=== PATIENT | male | born 2000 | race Caucasian/White ===

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

== ENCOUNTER → 2022-04-03 18:35 | Outpatient (BNVA) | payer BC, SELFPAY | PROVIDERS: PCP Family Medicine; Visit Provider Family Medicine | DX: A60.00 Herpesviral infection of urogenital system, unspecified (principal); Z20.2 Contact with and (suspected) exposure to infections with a predominantly sexual mode of transmission; B00.9 Herpesviral infection, unspecified | CPT/HCPCS: 87491; 87591; 87661 ==

== ENCOUNTER 2023-04-07 17:24 | Emergency (ER) | payer SELFPAY ==
[2023-04-07 17:46] VITALS: BP 169/84; PULSE 93; RESP 18; TEMP 36.3; O2SAT 99
[2023-04-07 18:17] LABS: Basophils % 0.3 %; Eosinophils # 0.2 10^3/uL (0.0-0.8); Eosinophils % 1.4 %; Hematocrit 42.6 % (37-53); Lymphocytes # 3.3 10^3/uL (0.8-4.8); Lymphocytes % 28.4 %; Mean Corpuscular HGB Conc 33.8 g/dL (30-55); Mean Corpuscular Hemoglobin 28.5 pg (27-33); Mean Corpuscular Volume 84.4 fl (82-101); Mean Platelet Volume 9.1 fL (7.4-10.4); Monocytes # 0.7 10^3/uL (0.2-0.9); Neutrophils # 7.35 10^3/uL (1.8-7.7); Neutrophils % 63.5 %; Nucleated Red Blood Cells % 0 %; Platelet Count 311 10^3/cmm (157-399); Red Blood Count 5.05 10^6/uL (3.85-5.65); Red Cell Distribution Width 11.9 % (12.1-15.1); White Blood Count 11.57 10^3/uL (3.29-11.43)
[2023-04-07 18:44] LABS: Alanine Aminotransferase 18 U/L (0-41); Albumin Level 4.7 g/dL (3.5-5.2); Alkaline Phosphatase 73 U/L (40-130); Anion Gap 14.8 (5-19); Aspartate Amino Transferase 19 U/L (0-40); Blood Urea Nitrogen 14 mg/dL (6-20); Calcium 9.4 mg/dL (8.5-10.5); Carbon Dioxide 22 mmol/L (22-29); Chloride 105 mmol/L (98-107); Globulin 2.7 g/dL (1.3-4.6); Glucose 105 mg/dL (65-115); Lipase 23 U/L (13-60); Osmolality Calculated 287 mOsm/kg (285-295); Potassium 3.8 mmol/L (3.5-5.1); Sodium 138 mmol/L (136-145); Total Bilirubin 0.2 mg/dL (0.15-1.2); Total Protein 7.4 g/dL (6.6-8.7)
--- NOTE | 2023-04-07 19:29 | ED_ITS ---
HPI - Abdominal Pain 2 General: Chief Complaint: Abdominal Pain Stated Complaint: lower abd pain, blood in urine Time Seen by Provider: 04/07/23 18:15 History of Present Illness: Patient is a 22-year-old male who presents to the emergency department for evaluation of abdominal pain and rectal bleeding. Patient reports that he has been struggling with intermittent bright red blood per rectum for approximately 2 years. Patient states that today he started to develop diarrhea and noticed an increase of blood in his stool. Patient states that he will intermittently notice blood clots in the toilet. Patient denies significant rectal pain, however, he did develop mild abdominal cramping earlier this afternoon. Patient reports that the abdominal cramping is a new symptom for him so he decided present to the emergency department for further management/evaluation. Patient currently rates his abdominal pain as a 7 out of 10 in severity that is primarily located to the left lower quadrant and suprapubic area. He denies fever, chills, nausea, vomiting, chest pain, shortness of breath, dysuria, hematuria, constipation, melena, hematemesis, or any other associated symptoms. Patient admits to drinking approximately 5 shots of whiskey a night. Admits to smoking approximately half a pack of cigarettes a day. He denies any other recreational drug use. No other complaints at this time. Associated Symptoms: Reports hematochezia; Denies chills, coffee ground emesis, dysuria, fever(s), hematuria, hematemesis, nausea, syncope and vomiting Review of Systems 2 General: Reports: 10 or more systems reviewed and unremarkable except in HPI and below Const: Denies: fever(s) or chills Eyes: Denies: change in vision or blurry vision ENMT: Denies: throat pain, ear or mastoid pain, ear discharge, nasal discharge or nasal congestion Card: Denies: chest pain, palpitations, lightheadedness or syncope Resp: Denies: dyspnea, productive cough, non-productive cough, wheezing or stridor GI: Reports: abdominal pain and hematochezia; Denies: nausea, vomiting, hematemesis, coffee ground emesis or rectal pain : Denies: flank pain, dysuria or hematuria Musc: Denies: neck pain, back pain or extremity pain Skin/Breast: Denies: rash Neuro: Denies: headache(s), dizziness or vertigo Psych: Denies: anxiety or depression PFSH ED 2 PFSH: Social History Smoking and tobacco/nicotine status: current every day tobacco/nicotine user Physical Exam 2 Const: COMMON NORMALS: no acute distress, average body habitus, patient oriented x3 and alert HENMT: COMMON NORMALS: normocephalic, atraumatic, moist oral mucous membranes and oropharynx normal HEAD & SCALP: normocephalic and atraumatic Eye: COMMON NORMALS: Equal, round and reactive pupils present, EOMs intact bilaterally and conjunctivae normal CONJUNCTIVA: Yes conjunctivae normal P UPIL: Yes Equal, round and reactive pupils present Neck/C-Spine: COMMON NORMALS: full ROM Chest: COMMONS NORMALS: normal inspection of the chest Resp: COMMON NORMALS: normal respiratory effort, No retractions, No use of accessory muscles and clear to auscultation bilaterally AUSCULTATION: clear to auscultation bilaterally Cardio: COMMON NORMALS: regular rate, regular rhythm, No gallops present (Cardio), No clicks present (Cardio), No murmurs present (Cardio) and No rub (Cardio) RATE: regular rate RHYTHM: regular rhythm GI: OTHER: Mild left lower quadrant and suprapubic noted to palpation. No McBurney's point tenderness, Mackenzie sign or epigastric tenderness noted. No peritoneal signs or rebound tenderness appreciated. Normoactive bowel sounds in all 4 quadrants. : OTHER: Senior Manufacturing Technician present. Multiple external hemorrhoids noted on examination. The hemorrhoids are not thrombosed and are fleshy in color. No evidence of rectal fissure, perianal abscess, or fistula noted. Extremity: OTHER: Moving bilateral upper and lower extremities without weakness or deficit. Neuro: COMMON NORMALS: patient oriented x3 SENSORIUM/ORIENTATION: Yes alert OTHER: Sensation intact in the bilateral upper and lower extremities. Course 2 Vital Signs: Vital signs: Vital Signs Temperature 97.4 F L 04/07/23 17:46 Pulse Rate 93 04/07/23 17:46 Respiratory Rate 18 04/07/23 17:46 Blood Pressure 169/84 04/07/23 17:46 Pulse Oximetry 99 04/07/23 17:46 Oxygen Delivery Me thod Room Air 04/07/23 17:46 MDM - Abdominal Pain Medical Decision Making Patient is a 22-year-old male who presents to the emergency department for evaluation of abdominal pain and rectal bleeding. On physical examination patient is nontoxic and in no acute distress. Vital signs remained stable throughout the ED course. Patient is afebrile. Patient is neurovascularly intact. Patient remained hemodynamically stable throughout the ED course. CBC showed mild leukocytosis at 11.57. No anemia noted. CMP, lipase, and urinalysis all grossly unremarkable. Rectal examination revealed Multiple external hemorrhoids noted on examination. The hemorrhoids are not thrombosed and are fleshy in color. No evidence of rectal fissure, perianal abscess, or fistula noted. No McBurney's point tenderness noted on examination. Schmitt score is is 2. I do not believe appendicitis is likely at this time. Based off history and physical examination I believe the patient's symptoms are likely related to hemorrhoids. Patient reports that his rectal bleeding has been going on for approximately 2 years. I will give a prescription of Anusol and have the patient follow-up with general surgery. A prescription of Anusol was sent to your pharmacy to be picked up. Take medication as prescribed. Increase oral hydration. See handouts over generalize instructions. Can take a stool softener such as MiraLAX to prevent from bearing down while having a bowel movement. A referral was sent to general surgery here in [place]. Number provided discharge paperwork, call tomorrow to schedule appointment for further management/evaluation. Return to the emergency department in the next 12 to 24 hours for any rapid or worsening symptoms to include but not limited to worsening abdominal pain, migration of abdominal pain to right lower quadrant, fever, vomiting, lightheadedness, dizziness, worsening bleeding, or as needed. Patient stated understanding of all discharge instructions was agreeable to plan of care. I discussed patient's history, exam, and all findings with Dr. Heredia in the emergency department who agreed my assessment and plan. He did not feel the patient required admission, imaging, or further evaluation at this time. Differential diagnosis includes but is not limited to external hemorrhoids, internal hemorrhoids, perianal abscess, rectal fistula, rectal fissure, appendicitis, gastroenteritis Lab Data 04/07/23 18:06 04/07/23 18:06 Labs/Radiology: Laboratory Results WBC 11.57 10^3/uL (3.29-11.43) H 04/07/23 18:06 RBC 5.05 10^6/uL (3.85-5.65) 04/07/23 18:06 Hgb 14.40 g/dL (11.27-16.99) 04/07/23 18:06 Hct 42.6 % (37-53) 04/07/23 18:06 MCV 84.4 fl (82-101) 04/07/23 18:06 MCH 28.5 pg (27-33) 04/07/23 18:06 MCHC 33.8 g/dL (30-55) 04/07/23 18:06 RDW 11.9 % (12.1-15.1) L 04/07/23 18:06 Plt Count 311 10^3/cmm (157-399) 04/07/23 18:06 MPV 9.1 fL (7.4-10.4) 04/07/23 18:06 Neut % (Auto) 63.5 % 04/07/23 18:06 Lymph % (Auto) 28.4 % 04/07/23 18:06 Turner % (Auto) 6.0 % 04/07/23 18:06 Eos % (Auto) 1.4 % 04/07/23 18:06 Baso % (Auto) 0.3 % 04/07/23 18:06 Neut # (Auto) 7.35 10^3/uL (1.8-7.7) 04/07/23 18:06 Lymph # (Auto) 3.3 10^3/uL (0.8-4.8) 04/07/23 18:06 Turner # (Auto) 0.7 10^3/uL (0.2-0.9) 04/07/23 18:06 Eos # (Auto) 0.2 10^3/uL (0.0-0.8) 04/07/23 18:06 Baso # (Auto) 0.0 10^3/uL (0.0-0.1) 04/07/23 18:06 Nucleated RBC % (auto) 0 % 04/07/23 18:06 Nucleated RBCs # 0.0 /100WBC 04/07/23 18:06 Sodium 138 mmol/L (136-145) 04/07/23 18:06 Potassium 3.8 mmol/L (3.5-5.1) 04/07/23 18:06 Chloride 105 mmol/L (98-107) 04/07/23 18:06 Carbon Dioxide 22 mmol/L (22-29) 04/07/23 18:06 Anion Gap 14.8 (5-19) 04/07/23 18:06 BUN 14 mg/dL (6-20) 04/07/23 18:06 Creatinine 0.7 mg/dL (0.7-1.2) 04/07/23 18:06 GFR Calculation 141.0 mL/min (90-130) H 04/07/23 18:06 Glucose 105 mg/dL (65-115) 04/07/23 18:06 Calculated Osmolality 287 mOsm/kg (285-295) 04/07/23 18:06 Calcium 9.4 mg/dL (8.5-10.5) 04/07/23 18:06 Total Bilirubin 0.2 mg/dL (0.15-1.2) 04/07/23 18:06 AST 19 U/L (0-40) 04/07/23 18:06 ALT 18 U/L (0-41) 04/07/23 18:06 Alkaline Phosphatase 73 U/L (40-130) 04/07/23 18:06 Total Protein 7.4 g/dL (6.6-8.7) 04/07/23 18:06 Albumin 4.7 g/dL (3.5-5.2) 04/07/23 18:06 Globulin 2.7 g/dL (1.3-4.6) 04/07/23 18:06 Lipase 23 U/L (13-60) 04/07/23 18:06 Urine Color Yellow (Yellow) 04/07/23 20:18 Urine Appearance Clear (CLEAR) 04/07/23 20:18 Urine pH 6 (5-7) 04/07/23 20:18 Ur Specific [place] 1.020 (1.005-1.030) 04/07/23 20:18 Urine Protein Neg (Negative) 04/07/23 20:18 Urine Glucose (UA) Norm (Normal) 04/07/23 20:18 Urine Ketones Negative (Negative) 04/07/23 20:18 Urine Blood Neg (Negative) 04/07/23 20:18 Urine Nitrate Negative (Negative) 04/07/23 20:18 Urine Bilirubin Neg (Negative) 04/07/23 20:18 Urine Urobilinogen Norm mg/dL (Negative) 04/07/23 20:18 Ur Leukocyte Esterase Negative (Negative) 04/07/23 20:18 No radiology studies performed this visit Discharge Plan Discharge Patient Disposition: Home Clinical Impression: Hemorrhoids Condition: Stable Prescriptions: New Anusol-HC 25 mg suppository 25 mg IA BID 14 Days Qty: 28 0RF No Action valacyclovir 1 gram tablet 1,000 mg PO BID Qty: 20 0RF doxycycline monohydrate 100 mg tablet 100 mg PO BID Qty: 14 0RF Discharge Orders: Discharge ED (Routine); Ordered 04/07/23 Ordered By: Stephen Nielson Referrals: Omar Lord DO [Physician] - Patient Instructions: Hemorrhoids (ED) Activity Restrictions/Additional Instructions: A prescription of Anusol was sent to your pharmacy to be picked up. Take medication as prescribed. Increase oral hydration. See handouts over generalize instructions. Can take a stool softener such as MiraLAX to prevent from bearing down while having a bowel movement. A referral was sent to general surgery here in [place]. Number provided discharge paperwork, call tomorrow to schedule appointment for further management/evaluation. Return to the emergency department in the next 12 to 24 hours for any rapid or worsening symptoms to include but not limited to worsening abdominal pain, migration of abdominal pain to right lower quadrant, fever, vomiting, lightheadedness, dizziness, worsening bleeding, or as needed. Coding Level of Care Code ED Light Out Examiner for Rufino Farrar
[2023-04-07 20:27] LABS: Add Urine Microscopic? NO; Charge for UA Resulting for Rev
[2023-04-07 20:36] LABS: Bilirubin Urine Neg (Negative); Blood Urine Neg (Negative); Glucose Urine UA Norm (Normal); Ketones Urine Negative (Negative); Leukocyte Esterase Urine Negative (Negative); Nitrate Urine Negative (Negative); Protein Urine Neg (Negative); Urine Appearance Clear (CLEAR); Urine Color Yellow (Yellow); Urobilinogen Urine Norm (Negative); pH Urine 6 (5-7)
[2023-04-07 22:22] VITALS: PULSE 90; RESP 16; O2SAT 97
--- NOTE | 2023-04-08 09:07 | DCPLANNER ---
Message sent to gen surg for a follow up appointment for retal bleeding and hemorrhoids.
== END 2023-04-07 21:35 | disposition home or self-care (01) ==
PROVIDERS: Emergency Medicine; Emergency Provider Physician Assistant
DX: K64.9 Unspecified hemorrhoids (principal); Z72.0 Tobacco use
CPT/HCPCS: 36415; 80053; 81003; 83690; 85025; 99283

== ENCOUNTER 2024-11-18 13:47 | Emergency (ER) | payer SELFPAY ==
[2024-11-18 13:55] VITALS: TEMP 36.8; BMI 31.5
--- NOTE | 2024-11-18 14:16 | CT_ITS ---
WS: [id number] CT CERVICAL SPINE HISTORY: trauma TECHNIQUE: Contiguous 2.0 mm axial imaging performed through the entire cervical spine. Sagittal and coronal reformats also performed. All CT scans at [facility] use at least one of these dose optimization techniques: automated exposure control; mA and/or kV adjustment per patient size (includes targeted exams where dose is matched to clinical indication); or iterative reconstruction. DLP: 1534.14 mGy.cm COMPARISON: None available. Normal cervical alignment. Craniocervical junction, atlantodental interval and C1-C2 alignment is normal. C2-C3: Normal. C3-C4: Normal. C4-C5: Normal. C5-C6: Normal. C6-C7: Normal. C7-T1: Normal. Soft tissues are normal. Lung apices are clear. CT/CT cervical spin wo con* [id number] IMPRESSION: Normal cervical spine.
--- NOTE | 2024-11-18 14:16 | CT_ITS ---
WS: [id number] CT HEAD NONCONTRAST HISTORY: trauma TECHNIQUE: Contiguous axial imaging performed through the brain. Bone and soft tissue windows. Sagittal and coronal reformats reviewed. All CT scans at [facility] use at least one of these dose optimization techniques: automated exposure control; mA and/or kV adjustment per patient size (includes targeted exams where dose is matched to clinical indication); or iterative reconstruction. DLP: 1534.14 mGy.cm COMPARISON: 06/29/2006 No acute intracranial hemorrhage, midline shift or mass effect. No atrophy or prior infarcts or herniation. No prior infarct. No mass effect or shift of midline structures. Ventricles: Normal size with no hydrocephalus. Paranasal sinuses: Mild mucoperiosteal thickening throughout the RIGHT maxillary sinus. No air-fluid levels. Mastoid air cells: Well pneumatized. Calvarium and scalp: Skull is intact with no soft tissue edema or swelling. CT/CT head wo con* [id number] IMPRESSION: Negative head CT.
--- NOTE | 2024-11-18 14:42 | ED_ITS ---
HPI - Head Injury 2 General: Chief complaint: Head Injury Stated complaint: hit in head with farm equipment Time Seen by Provider: 11/18/24 14:06 History of Present Illness: Jeff Prabhakar is a 24-year-old male that presents to the emergency department with complaints head injury and neck pain. Patient reports that a day 3000 pound metal high lift driver fell onto his head fracturing his welding helmet. He has abrasions to the crown of his head. He reports a positive loss of consciousness. He reports neck pain He denies anticoagulation/antiplatelet therapy Related Data Home Medications ?Medication ?Instructions ?Recorded ?Confirmed acetaminophen 325 mg tablet 650 mg PO QID PRN Fever Or Pain 11/18/24 11/18/24 (Tylenol) ibuprofen 200 mg tablet (Advil) 800 mg PO Q6H PRN Feve r Or Pain 11/18/24 11/18/24 Previous Rx's ?Medication ?Instructions ?Recorded ondansetron 4 mg disintegrating 4 mg PO Q8H PRN nausea and 11/18/24 tablet vomiting 5 days #20 tabs Allergies Allergy/AdvReac Type Severity Reaction Status Date / Time Penicillins Allergy ALGY-Hives Verified 04/03/22 17:52 Review of Systems 2 General: Reports: 10 or more systems reviewed and unremarkable except in HPI and below Narrative: He reports headache, not feeling well, neck pain PFSH ED 2 PFSH: Social History Smoking and tobacco/nicotine status: current every day tobacco/nicotine user Physical Exam 2 Const: COMMON NORMALS: no acute distress, patient oriented x3 and alert G ENERAL APPEARANCE: cooperative ORIENTATION/CONSCIOUSNESS: Yes awake, Yes oriented to person, Yes oriented to place and Yes oriented to time HENMT: HEAD & SCALP: contusion and scalp tenderness HEAD IMAGES: 1. Abrasions, contusions Neck/C-Spine: GENERAL: Yes normal visual inspection Lymph: LYMPHATIC: no lymphadenopathy noted Chest: COMMONS NORMALS: normal inspection of the chest Breast/axilla inspection: Yes no chest deformity, asymmetry, normal contours, no nodules, masses, tenderness Resp: COMMON NORMALS: normal respiratory effort, No retractions, No use of accessory muscles and clear to auscultation bilaterally EFFORT & INSPECTION: Yes able to speak in complete sentences and Yes symmetric chest movement A USCULTATION: clear to auscultation bilaterally Cardio: COMMON NORMALS: regular rate, regular rhythm and Peripheral pulses 2+ throughout RATE: regular rate RHYTHM: regular rhythm PERIPHERAL PULSES: Peripheral pulses 2+ throughout GI: COMMON NORMALS: Normal to inspection, nondistended, normoactive bowel sounds present, Soft to palpation, non-tender and No hepatosplenomegaly present INSPECTION: Yes normal to inspection AUSCULTATION: Yes normoactive bowel sounds PALPATION: Yes Soft to palpation and Yes No hepatosplenomegaly present RECTAL EXAM: Yes deferred Extremity: COMMON NORMALS: normal to inspection GENERAL: Yes normal exam except as noted Neuro: COMMON NORMALS: patient oriented x3 SENSORIUM/ORIENTATION: Yes alert, Yes oriented to person, Yes oriented to place and Yes oriented to time CRANIAL NERVES: Yes CN normal except as noted Psych: COMMON NORMALS: mental status grossly normal, Normal thought process present, cooperative, activity/motor behavior normal, denies homicidal ideation and denies suicidal ideation THOUGHT PROCESS: Normal thought process present Skin: COMMON NORMALS: no rashes or lesions noted, no wounds and turgor normal GENERAL SKIN EXAM: no rashes or lesions noted and turgor normal Course 2 Vital Signs: Vital signs: Vital Signs Temperature 98.3 F 11/18/24 13:55 Pulse Rate 87 11/18/24 14:46 Respiratory Rate 16 11/18/24 14:46 Blood Pressure 165/93 11/18/24 14:46 Pulse Oximetry 96 11/18/24 14:46 Oxygen Delivery Me thod Room Air 11/18/24 14:46 MDM - Head Injury Medcial Decision Making Patient is a 24 yo male that presents to ER with concerns of head injury after a 3000 pound high lift driver fell landing on the crown of his head. He reports +LOC. He underwent a CT head and CT cervical spine. CT imaging of head and cervical spine was unremarkable. Patient has had bouts of nausea. He has remained conscious throughout his ER visit. He underwent a oral fluid challenge and we ambulated him. He did well. We are going to discharge him with a work excuse. While the CT head was negative, he undoubtably sustained a concussion. His symptoms could wax and wane for a week or so. I reviewed extensively what to return for. Significant other verbalizes understanding Lab Data Radiology Impressions Cervical Spine CT 11/18/24 14:16 IMPRESSION: Normal cervical spine. Head CT 11/18/24 14:16 IMPRESSION: Negative head CT. All radiology interpretation(s) finalized by discharge Discharge Plan Discharge Patient Disposition: Home Clinical Impression: Head injury due to trauma, Head injury, closed, with LOC of unknown duration Condition: Stable Prescriptions: New ondansetron 4 mg tablet,disintegrating 4 mg PO Q8H PRN (Reason: nausea and vomiting) 5 Days Qty: 20 0RF No Action acetaminophen [Tylenol] 325 mg Tablet 650 mg PO QID PRN (Reason: Fever Or Pain) ibuprofen [Advil] 200 mg Tablet 800 mg PO Q6H PRN (Reason: Fever Or Pain) Discharge Orders: Discharge ED (Routine); Ordered 11/18/24 Ordered By: Lucas Bergman Discharge Diet: Advance as tolerated Discharge Activity: Resume usual activity Patient Instructions: Head Injury (ED), Post Concussion Syndrome (ED), Opioid Safety, Pain Management, Patient Portal & Navjot Instructions Activity Restrictions/Additional Instructions: Please return to the emergency department for any new, concerning, worsening symptoms Print Language: Malagasy Coding Level of Care Code ED Hospital Chief Financial Officer for Rufino Farrar
[2024-11-18] MEDS: ondansetron 2 mg/ML SDV 2 mL 4 MG IVP (14:44)
[2024-11-18 14:46] VITALS: BP 165/93; PULSE 87; RESP 16; O2SAT 96
--- NOTE | 2024-11-18 14:58 | PC.NURSE ---
this RM assumed care of PT @1600
[2024-11-18 16:59] VITALS: BP 151/109; PULSE 84; O2SAT 99
== END 2024-11-18 17:02 | disposition home or self-care (01) ==
PROVIDERS: Emergency Provider Nurse Practitioner
DX: S09.8XXA Other specified injuries of head, initial encounter (principal); Z72.0 Tobacco use; W20.8XXA Other cause of strike by thrown, projected or falling object, initial encounter
CPT/HCPCS: 70450; 72125; 96374; 99285; J2405

== ENCOUNTER 2025-03-21 20:59 | Emergency (ER) | payer SELFPAY ==
[2025-03-21 21:05] VITALS: BP 162/111; PULSE 114; RESP 22; TEMP 37; O2SAT 100; BMI 33.0
[2025-03-21 21:19] VITALS: BP 160/103; PULSE 102; O2SAT 97
[2025-03-21 21:27] LABS: Glucose Urine UA Negative (Normal); Nitrate Urine Negative (Negative); Specific Gravity, Urine 1.005 (1.005-1.030)
[2025-03-21 21:30] VITALS: BP 142/93; PULSE 94; O2SAT 98
[2025-03-21 21:32] LABS: Add Urine Microscopic? YES
--- NOTE | 2025-03-21 21:43 | CTR_ITS ---
PROCEDURE INFORMATION: Exam: CT Abdomen And Pelvis With Contrast Exam date and time: 03/21/2025 10:20 PM Age: 24 years old Clinical indication: Abdominal pain; Additional info: Abdominal pain, hematemesis, concern for joseph-howell tear vs. Esophageal varices TECHNIQUE: Imaging protocol: Computed tomography of the abdomen and pelvis with contrast. Radiation optimization: All CT scans at this facility use at least one of these dose optimization techniques: automated exposure control; mA and/or kV adjustment per patient size (includes targeted exams where dose is matched to clinical indication); or iterative reconstruction. Contrast material: [id number]; Contrast volume: 100 ml; Contrast route: INTRAVENOUS (IV); COMPARISON: CT abdomen pelvis w con* [id number] 01/26/2019 6:27 PM RADIATION DOSE METRICS: Total DLP (mGy-cm): 1207.93 FINDINGS: Liver: Hepatic steatosis. Gallbladder and biliary ducts: Normal. No calcified stones. No ductal dilation. Pancreas: Normal. No ductal dilation. Spleen: Normal. No splenomegaly. Adrenal glands: Normal. No mass. Kidneys and ureters: Normal. No hydronephrosis. Stomach and bowel: Thickening of the sigmoid colon, likely from underdistention. Appendix: No evidence of appendicitis. Intraperitoneal space: Unremarkable. No free air. No significant fluid collection. Vasculature: Unremarkable. No abdominal aortic aneurysm. Lymph nodes: Unremarkable. No enlarged lymph nodes. Urinary bladder: Unremarkable as visualized. Reproductive: Unremarkable as visualized. Bones/joints: Unremarkable. No acute fracture. Soft tissues: Unremarkable. CT/CT abdomen pelvis w con* [id number] IMPRESSION: No acute findings. Normal-appearing distal esophagus.
[2025-03-21 22:00] VITALS: BP 133/93; PULSE 85; O2SAT 96
[2025-03-21] MEDS: pantoprazole 40 mg SDV 80 MG IVP (22:13)
[2025-03-21] MEDS: iohexol 350 mg/mL 500 mL Btl (per mL) IV (22:24)
--- NOTE | 2025-03-21 22:27 | ED_ITS ---
HPI - Abdominal Pain 2 General: Chief Complaint: Abdominal Pain Stated Complaint: Blood in Stool Time Seen by Provider: 03/21/25 21:13 History of Present Illness: Patient is a 24-year-old gentleman without previous medical history that reports to emergency room with bloody emesis. Content: Patient admits to occasional epigastric pain, that was worse today, he had nausea, vomiting, a couple times, then noted he had a large amount of blood per emesis. He continues to have epigastric discomfort. He does drink alcohol, 6?12 of the [place] 100 proof vodka daily of the shooters. He is fairly consistent with this as well. Patient also admits that he has bloody stools, sometimes dark, and sometimes bright red blood. He does admit to internal hemorrhoids. He has not seen a doctor in several years, and has had the stool change for 3-4 years. Associated Symptoms: Reports hematemesis, melena, nausea and vomiting; Denies change in stool character, chills, diarrhea and fever(s) Related Data Home Medications ?Medication ?Instructions ?Recorded ?Confirmed acetaminophen 325 mg tablet 650 mg PO QID PRN Fever Or Pain 11/18/24 11/18/24 (Tylenol) ibuprofen 200 mg tablet (Advil) 800 mg PO Q6H PRN Feve r Or Pain 11/18/24 11/18/24 Previous Rx's ?Medication ?Instructions ?Recorded ondansetron 4 mg disintegrating 4 mg PO Q8H PRN nausea and 03/21/25 tablet vomiting 4 days #14 tabs pantoprazole 40 mg tablet,delayed 40 mg PO DAILY #30 t abs 03/21/25 release Allergies Allergy/AdvReac Type Severity Reaction Status Date / Time Penicillins Allergy ALGY-Hives Verified 04/03/22 17:52 Review of Systems 2 General: Reports: 10 or more systems reviewed and unremarkable except in HPI and below Const: Denies: fever(s) or chills ENMT: Denies: throat pain or dry mouth Card: Denies: chest pain or palpitations Resp: Denies: dyspnea or productive cough GI: Reports: abdominal pain, nausea, vomiting, hematemesis and melena; Denies: diarrhea or change in stool character : Denies: flank pain or difficulty urinating Musc: Denies: neck pain or back pain Neuro: Denies: headache(s) or numbness in extremities Psych: Denies: anxiety or depression PFSH ED 2 PFSH: Social History Smoking and tobacco/nicotine status: current every day tobacco/nicotine user Physical Exam 2 Const: COMMON NORMALS: no acute distress, average body habitus, patient oriented x3, no limitations, healthy appearing, alert and well nourished HENMT: COMMON NORMALS: normocephalic, atraumatic and hearing grossly normal bilaterally HEAD & SCALP: normocephalic and atraumatic FACE & SINUS: n ormal facial exam Eye: COMMON NORMALS: Equal, round and reactive pupils present, EOMs intact bilaterally, conjunctivae normal (No scleral icterus or scleral paleness) and negative for no scleral icterus CONJUNCTIVA: Yes conjunctivae normal (No scleral icterus or scleral paleness) PUPIL: Yes Equal, round and reactive pupils present Neck/C-Spine: COMMON NORMALS: full ROM, no lymphadenopathy, supple and no meningeal signs Lymph: LYMPHATIC: no lymphadenopathy noted Chest: COMMONS NORMALS: normal inspection of the chest and normal palpation of entire chest wall Resp: COMMON NORMALS: normal respiratory effort, No retractions and clear to auscultation bilaterally AUSCULTATION: clear to auscultation bilaterally Cardio: COMMON NORMALS: regular rate and regular rhythm RATE: regular rate RHYTHM: regular rhythm GI: COMMON NORMALS: Normal to inspection, nondistended, normoactive bowel sounds present, Soft to palpation, non-tender and No hepatosplenomegaly present PALPATION: Yes Soft to palpation, Yes Tenderness to palpation present (GI) (epigastrum) Details: LLQ and Yes No hepatosplenomegaly present : COMMON NORMALS: Yes no CVA tenderness BLADDER/KIDNEY EXAM: Yes no CVA tenderness Back/Pelvis: COMMON NORMALS: no CVA tenderness Extremity: COMMON NORMALS: normal to inspection, full ROM and capillary refill normal Neuro: COMMON NORMALS: patient oriented x3, CN's II-XII intact bilaterally and moves all extremities SENSORIUM/ORIENTATION: Yes alert MENINGEAL SIGNS: Y es no meningeal signs Psych: COMMON NORMALS: mental status grossly normal, Normal thought process present, cooperative, normal affect and speech normal SPEECH: Yes normal speech THOUGHT PROCESS: Normal thought process present Course 2 Vital Signs: Vital signs: Vital Signs Temperature 98.6 F 03/21/25 21:05 Pulse Rate 89 03/21/25 23:41 Respiratory Rate 16 03/21/25 23:41 Blood Pressure 132/87 03/21/25 23:41 Pulse Oximetry 97 03/21/25 23:41 Oxygen Delivery Me thod Room Air 03/21/25 22:30 MDM - Abdominal Pain Medical Decision Making Patient is a pleasant 24-year-old gentleman that had acute issues of hematemesis, and ongoing issues of dark and bright red blood per rectum. His acute issue was mainly addressed. Concern of esophageal varices differential was discussed with patient. His history was significant for Shreya-Woods tear. He does drink shooters of [place] 100 proof, 6?12 nightly. He is quite appropriate in his disclosures. I have discussed with him Shreya-Woods tear, given him IV fluids, and encouraged him to stop his alcohol intake, and discuss his mild elevation of LFTs. His CT of his abdomen pelvis did not show esophageal varices, which patient is quite thankful for, and is more consistent with his clinical diagnosis of Shreya-Woods tear. I have set him up for outpatient consultation with Dr. Carnes, for possible colonoscopy, and EGD. He has been placed on pantoprazole, asked to cease alcohol intake, and clear liquid diet until his nausea symptoms or emesis ceased. Patient states understanding and is grateful for his care today. As far as his chronic issues of dark blood, and bright lead blood, patient does have hemorrhoids. I suspect the bright red blood is associated with hemorrhoidal, and I suspect the dark of blood is associated with gastritis, alcoholic gastritis. Discussed this with patient. Discussed additional concerns of colitis, ulcerative, and Crohn's, no history of inflammatory bowel disease. He will follow-up with Dr. Carnes for further decision making. Blood counts were stable today. Noted not to intake any NSAIDs/aspirin and layman's terms to patient verbally, and written instructions. Medical Records I reviewed the patient's medical records. Lab Data I reviewed the patient's lab results. 03/21/25 23:00 03/21/25 23:00 Labs/Radiology: Radiology Impressions Abdomen/Pelvis CT 03/21/25 21:43 IMPRESSION: No acute findings. Normal-appearing distal esophagus. Laboratory Results WBC 6.55 10^3/uL (3.29-11.43) 03/21/25 23:00 RBC 4.34 10^6/uL (3.85-5.65) 03/21/25 23:00 Hgb 12.60 g/dL (11.27-16.99) 03/21/25 23:00 Hct 38.0 % (37-53) 03/21/25 23:00 MCV 87.6 fl (82-101) 03/21/25 23:00 MCH 29.0 pg (27-33) 03/21/25 23:00 MCHC 33.2 g/dL (30-55) 03/21/25 23:00 RDW 13.4 % (12.1-15.1) 03/21/25 23:00 Plt Count 264 10^3/cmm (157-399) 03/21/25 23:00 MPV 8.8 fL (7.4-10.4) 03/21/25 23:00 Neut % (Auto) 46.3 % 03/21/25 23:00 Lymph % (Auto) 43.5 % 03/21/25 23:00 [place] % (Auto) 8.2 % 03/21/25 23:00 Eos % (Auto) 0.9 % 03/21/25 23:00 Baso % (Auto) 0.8 % 03/21/25 23:00 Neut # (Auto) 3.03 10^3/uL (1.8-7.7) 03/21/25 23:00 Lymph # (Auto) 2.9 10^3/uL (0.8-4.8) 03/21/25 23:00 [place]k # (Auto) 0.5 10^3/uL (0.2-0.9) 03/21/25 23:00 Eos # (Auto) 0.1 10^3/uL (0.0-0.8) 03/21/25 23:00 Baso # (Auto) 0.1 10^3/uL (0.0-0.1) 03/21/25 23:00 Nucleated RBC % (auto) 0 % 03/21/25 23:00 Nucleated RBCs # 0.0 /100WBC 03/21/25 23:00 Sodium 140 mmol/L (136-145) 03/21/25 23:00 Potassium 3.8 mmol/L (3.5-5.1) 03/21/25 23:00 Chloride 103 mmol/L (98-107) 03/21/25 23:00 Carbon Dioxide 24 mmol/L (22-29) 03/21/25 23:00 Anion Gap 16.8 (5-19) 03/21/25 23:00 BUN 9 mg/dL (6-20) 03/21/25 23:00 Creatinine 0.7 mg/dL (0.7-1.2) 03/21/25 23:00 GFR Calculation 138.6 mL/min (90-130) H 03/21/25 23:00 Glucose 108 mg/dL (65-115) 03/21/25 23:00 Calculated Osmolality 289 mOsm/kg (285-295) 03/21/25 23:00 Calcium 8.6 mg/dL (8.5-10.5) 03/21/25 23:00 Total Bilirubin 0.3 mg/dL (0.15-1.2) 03/21/25 23:00 AST 79 U/L (0-40) H 03/21/25 23:00 ALT 65 U/L (0-41) H 03/21/25 23:00 Alkaline Phosphatase 68 U/L (40-130) 03/21/25 23:00 Total Protein 7.0 g/dL (6.6-8.7) 03/21/25 23:00 Albumin 4.4 g/dL (3.5-5.2) 03/21/25 23:00 Globulin 2.6 g/dL (1.3-4.6) 03/21/25 23:00 Urine Color Yellow (Yellow) 03/21/25 21:10 Urine Appearance Clear (CLEAR) 03/21/25 21:10 Urine pH 6.5 (5-7) 03/21/25 21:10 Ur Specific [place] 1.005 (1.005-1.030) 03/21/25 21:10 Urine Protein Negative (Negative) 03/21/25 21:10 Urine Glucose (UA) Negative (Normal) 03/21/25 21:10 Urine Ketones Negative (Negative) 03/21/25 21:10 Urine Blood Negative (Negative) 03/21/25 21:10 Urine Nitrate Negative (Negative) 03/21/25 21:10 Urine Bilirubin Negative (Negative) 03/21/25 21:10 Urine Urobilinogen 0.2 mg/dL (Negative) 03/21/25 21:10 Ur Leukocyte Esterase Negative (Negative) 03/21/25 21:10 Urine RBC 0-2 /hpf (0-2) 03/21/25 21:10 Urine WBC 0-5 /hpf (0-5) 03/21/25 21:10 Ur Squamous Epith Cells 0-5 /hpf (0-5) 03/21/25 21:10 Amorphous Sediment Not Reportable 03/21/25 21:10 Urine Bacteria None seen /hpf (NONE) 03/21/25 21:10 Hyaline Casts 0.40 /lpf 03/21/25 21:10 All radiology interpretation(s) finalized by discharge ED provider radiology interpretation(s): No acute findings Discharge Plan Discharge Patient Disposition: Home Clinical Impression: Hsreya-Woods tear Condition: Stable Prescriptions: New pantoprazole 40 mg tablet,delayed release (DR/EC) 40 mg PO DAILY Qty: 30 0RF ondansetron 4 mg tablet,disintegrating 4 mg PO Q8H PRN (Reason: nausea and vomiting) 4 Days Qty: 14 0RF No Action acetaminophen [Tylenol] 325 mg Tablet 650 mg PO QID PRN (Reason: Fever Or Pain) ibuprofen [Advil] 200 mg Tablet 800 mg PO Q6H PRN (Reason: Fever Or Pain) Discharge Orders: Discharge ED (Routine); Ordered 03/21/25 Ordered By: Stella De León Referrals: Jin Carnes MD [Physician, General Surgery] - 7-10 days Clinical Impression: Shreya-Woods tear Discharge Diet: Clear Liquid Discharge Activity: Resume usual activity Patient Instructions: Abdominal Pain (ED), Shreya-Woods Syndrome (ED), Patient Portal & Navjot Instructions Activity Restrictions/Additional Instructions: - Do not take: Ibuprofen, naproxen, aspirin, BC powder, Pepto-Bismol, or any NSAIDs containing product or blood thinner. - At the pharmacy: Pantoprazole, this is for your stomach and the inflammation, and Zofran/ondansetron, this is for nausea. Use as directed. - Return to ED if you have ongoing vomiting, lightheadedness, fever greater than 100.4 is Fahrenheit - Clear liquid diet only until this resolves - No alcohol - Follow-up with surgeon for outpatient colonoscopy and scope. I have made a referral to Dr. Carnes. This will help you expedite this issue. Thank you for choosing [facility] for your healthcare needs today. You have been screened and evaluated and felt safe for discharge. Health conditions do change or evolve sometimes and as such it is important that you follow up with your Primary Doctor to be re checked, 3-5 days is a general good time frame for follow up. You are always welcome to return to the ED for re assessment if your symptoms are worsening or you have new concerns Stand Alone Forms: Work/School Release Print Language: Kiswahili Coding Level of Care Code ED Route [employer] for [employer]ufino Farrar
[2025-03-21 22:30] VITALS: BP 143/91; PULSE 85; O2SAT 95
[2025-03-21 23:23] LABS: Hematocrit 38.0 % (37-53); Hemoglobin 12.60 g/dL (11.27-16.99); Mean Corpuscular HGB Conc 33.2 g/dL (30-55); Mean Corpuscular Hemoglobin 29.0 pg (27-33); Mean Corpuscular Volume 87.6 fl (82-101); Nucleated Red Blood Cells % 0 %; Platelet Count 264 10^3/cmm (157-399); Red Blood Count 4.34 10^6/uL (3.85-5.65); White Blood Count 6.55 10^3/uL (3.29-11.43)
[2025-03-21 23:33] LABS: Alanine Aminotransferase 65 U/L (0-41); Albumin Level 4.4 g/dL (3.5-5.2); Alkaline Phosphatase 68 U/L (40-130); Anion Gap 16.8 (5-19); Aspartate Amino Transferase 79 U/L (0-40); Blood Urea Nitrogen 9 mg/dL (6-20); Calcium 8.6 mg/dL (8.5-10.5); Carbon Dioxide 24 mmol/L (22-29); Chloride 103 mmol/L (98-107); Globulin 2.6 g/dL (1.3-4.6); Glucose 108 mg/dL (65-115); Osmolality Calculated 289 mOsm/kg (285-295); Potassium 3.8 mmol/L (3.5-5.1); Sodium 140 mmol/L (136-145); Total Protein 7.0 g/dL (6.6-8.7)
[2025-03-21 23:41] VITALS: BP 132/87; PULSE 89; RESP 16; O2SAT 97
== END 2025-03-21 23:53 | disposition home or self-care (01) ==
PROVIDERS: Family Medicine; Emergency Provider Physician Assistant
DX: K22.6 Gastro-esophageal laceration-hemorrhage syndrome (principal); K64.9 Unspecified hemorrhoids
CPT/HCPCS: 36415; 74177; 80053; 81001; 85025; 96361; 96374; 99285; J2470; J7120